=== PATIENT | female | born 1940 | race Caucasian/White ===

== ENCOUNTER 2017-08-11 14:03 | Outpatient (CLI) | payer MEDICARE | END 2017-08-11 14:04 | disposition critical access hospital (66) | LOC: EMS 14:03 | PROVIDERS: ATTEND Surgery | DX: K62.5 Hemorrhage of anus and rectum (principal) | CPT/HCPCS: A0425; A0427 ==

== ENCOUNTER 2017-08-11 14:35 | Emergency (ER) | payer MEDICARE ==
[2017-08-11 15:03] LABS: BASOPHILS % (AUTO) 0.4 %; EOSINOPHILS % (AUTO) 0.3 %; HCT - HEMATOCRIT 29.9 % (37.0-47.0); HGB - HEMOGLOBIN 10.2 g/dL (12.0-16.0); LYMPHOCYTES # (AUTO) 2.3 10^3/uL (1.5-3.5); MEAN CORPUSCULAR HEMOGLOBIN 30.8 pg (27.0-31.0); MEAN CORPUSCULAR VOLUME 90.7 fL (81.0-99.0); MEAN PLATELET VOLUME 7.9 fL (7.9-10.8); MONOCYTES # (AUTO) 0.5 10^3/uL (0.0-1.0); MONOCYTES % (AUTO) 4.3 %; NEUTROPHILS # (AUTO) 8.1 10^3/uL (1.5-6.6); RED CELL DISTRIBUTION WIDTH 13.4 % (12.0-15.0); UNCORRECTED WHITE BLOOD COUNT 10.9 x10^3/uL; WHITE BLOOD COUNT 10.9 x10^3/uL (4.8-10.8)
[2017-08-11 15:10] LABS: INR 1.1 (0.8-1.2); PT - PROTHROMBIN TIME 12.4 secs (9.9-12.6)
[2017-08-11 15:19] LABS: ALBUMIN/GLOBULIN RATIO 1.3 (1.0-2.2); BILIRUBIN,TOTAL 0.4 mg/dL (0.2-1.0); CALCIUM 8.7 mg/dL (8.5-10.3); CREATININE 0.9 mg/dL (0.4-1.0); PARTIAL THROMBOPLASTIN TIME 29.8 secs (24.9-33.3); POTASSIUM 3.6 mmol/L (3.5-5.0); TOTAL PROTEIN 6.1 g/dL (6.7-8.2)
--- NOTE | 2017-08-11 16:28 | ED Physician Documentation ---
PD HPI GI BLEED - Stated complaint Stated Complaint: GI BLEED/ SOA - Chief complaint Chief Complaint: Abd Pain - History obtained from History obtained from: Patient - History of Present Illness Timing - onset: Today Timing - duration: Days (1) Timing - details: Abrupt onset Pain level max: 0 Pain level now: 0 Associated symptoms: BRBPR (x1), Black/tarry stool (x1) Contributing factors: No: Sick contact, Bad food, Travel, Recent antibiotics, Alcohol use, Aspirin use, NSAID use, Stress, Anticoagulated, Diabetes Improved by: Other (nothing) Worsened by: Other (nothing) Similar symptoms before: Has not had sx before Recently seen: Not recently seen - Additional information Additional information: states normal colonoscopy 3 years ago. Not on any home medications. Review of Systems Ten Systems: 10 systems reviewed and negative Constitutional: denies: Fever, Chills Cardiac: denies: Chest pain / pressure Respiratory: denies: Cough GI: denies: Abdominal Pain, Nausea, Vomiting, Diarrhea Skin: denies: Rash Musculoskeletal: denies: Neck pain, Back pain Neurologic: denies: Syncope PD PAST MEDICAL HISTORY - Past Medical History Past Medical History: Yes Cardiovascular: Hypertension Other Past Medical History: pt. has not been taking her meds for a while because she ran out - Past Surgical History Past Surgical History: Yes Ortho: Hip replacement - Present Medications Home Medications: Ambulatory Orders Medication Instructions Recorded Confirmed No Known Home Medications [No 08/11/17 08/11/17 Known Home Medications] - Allergies Allergies/Adverse Reactions: Allergies Allergy/AdvReac Type Severity Reaction Status Date / Time No Known Drug Allergies Allergy Verified 04/21/13 17:57 - Social History Does the pt smoke?: Yes Smoking Status: Current every day smoker - Immunizations Immunizations are current?: No PD ED PE NORMAL - Vitals Vital signs reviewed: Yes - General General: Alert and oriented X 3, No acute distress, Well developed/nourished - HEENT HEENT: PERRL, Moist mucous membranes - Neck Neck: Supple, no meningeal sign - Cardiac Cardiac: RRR, No murmur, Strong equal pulses - Respiratory Respiratory: No respiratory distress, Other (Mild wheezing bilaterally) - Abdomen Abdomen: Soft, Non tender, Non distended - Rectal Rectal: Other (hemoccult +. Dark stool. Essie LÓPEZ present) - Derm Derm: Warm and dry - Extremities Extremities: No edema, No calf tenderness / cord - Neuro Neuro: Alert and oriented X 3 - Psych Psych: Normal mood, Normal affect Results - Vitals Vitals: Vital Signs - 24 hr 08/11/17 08/11/17 14:35 16:38 Temperature 37.0 C 36.8 C Heart Rate 112 H 120 H Respiratory 18 20 Rate Blood Pressure 116/76 122/74 O2 Saturation 100 97 Oxygen O2 Source Room air - Labs Labs: Laboratory Tests 08/11/17 08/11/17 08/11/17 14:55 14:55 14:55 WBC 10.9 H RBC 3.30 L Hgb 10.2 L Hct 29.9 L MCV 90.7 MCH 30.8 MCHC 34.0 RDW 13.4 Plt Count 259 MPV 7.9 Neut # 8.1 H Lymph # 2.3 [place] # 0.5 Eos # 0.0 Baso # 0.0 Absolute Nucleated RBC 0.00 Nucleated RBC % 0.0 PT 12.4 INR 1.1 APTT 29.8 Sodium Potassium Chloride Carbon Dioxide Anion Gap BUN Creatinine Estimated GFR (MDRD) Glucose Calcium Total Bilirubin AST ALT Alkaline Phosphatase Total Protein Albumin Globulin Albumin/Globulin Ratio Lipase Blood Type O NEGATIVE Antibody Screen NEGATIVE 08/11/17 14:55 WBC RBC Hgb Hct MCV MCH MCHC RDW Plt Count MPV Neut # Lymph # [place] # Eos # Baso # Absolute Nucleated RBC Nucleated RBC % PT INR APTT Sodium 139 Potassium 3.6 Chloride 108 Carbon Dioxide 22 Anion Gap 9.0 BUN 49 H Creatinine 0.9 Estimated GFR (MDRD) 61 L Glucose 120 H Calcium 8.7 Total Bilirubin 0.4 AST 16 ALT 12 Alkaline Phosphatase 59 Total Protein 6.1 L Albumin 3.5 Globulin 2.6 Albumin/Globulin Ratio 1.3 Lipase 26 Blood Type Antibody Screen PD MEDICAL DECISION MAKING - ED course Complexity details: reviewed results, re-evaluated patient, considered differential, d/w patient, d/w trial consultant ED course: Patient is a 77-year-old female who presents to the emergency department with a lower GI bleed. No bleeding in the emergency department. No need to have a bowel movement. No abdominal pain. Abdomen is soft, nontender nondistended. She states that her heart rate is always fast and this is a chronic condition for her. Denies being any more short of breath than her normal baseline to me. She adamantly does not want to stay in the hospital. I discussed the case with Dr. Batres, general surgery and he will see her in the office as long as she does not become symptomatic or have recurrent bleeding. Patient is comfortable with this plan and she will call his office in the morning for an appointment. She will return if she worsens in any way. Patient counseled regarding signs and symptoms for which I believe and urgent re-evaluation would be necessary. Patient with good understanding of and agreement to plan and is comfortable going home at this time This document was made in part using voice recognition software. While efforts are made to proofread this document, sound alike and grammatical errors may occur. Departure - Departure Disposition: 01 Home, Self Care Clinical Impression: GI bleed Qualifiers: GI bleed type/associated pathology: unspecified gastrointestinal hemorrhage type Qualified Code(s): K92.2 - Gastrointestinal hemorrhage, unspecified Condition: Good Instructions: ED Hematochezia Stable Follow-Up: Carlo Batres MD [Provider Admit Priv/Credential] - Tomorrow (call the office first thing in the morning about follow up with Dr. Batres) Comments: call the office first thing in the morning about follow up with Dr. Batres. Return if you worsen including worsening bleeding, lightheadedness, dizziness or any other new or worsening symptoms. You can also return if you change your mind about being admitted to the hospital. Discharge Date/Time: 08/11/17 16:47
[2017-08-11 16:47] VITALS: BP 122/74
== END 2017-08-11 16:47 | disposition home or self-care (01) ==
LOC: EDUNIT# → ED 14:35
DX: K92.2 Gastrointestinal hemorrhage, unspecified (principal); I10 Essential (primary) hypertension; F17.200 Nicotine dependence, unspecified, uncomplicated
CPT/HCPCS: 36415; 80053; 83690; 85025; 85610; 85730; 86850; 86900; 86901; 99283; 99284

== ENCOUNTER 2017-08-20 07:01 | Day surgery (SDC) | payer MEDICARE ==
[~2017-08-20 07:01] MED LIST: LACTATED RINGERS 1,000 ML IV ONE
[2017-08-20] MEDS ORDERED: MIDAZOLAM 2 MG/2 ML VIAL IVP ONE (08:21)
[2017-08-20] MEDS ORDERED: fentaNYL 100 MCG/2 ML VIAL IVP ONE (08:21)
[2017-08-20 08:23] LABS: IRON 19 ug/dL (28-170); TOTAL IRON BINDING CAPACITY 360 ug/dL (250-450); TRANSFERRIN 257 mg/dL (192-382)
[2017-08-20 09:39] VITALS: BP 108/64
== END 2017-08-20 07:02 | disposition home or self-care (01) ==
LOC: SDS 07:01
PROVIDERS: ATTEND Surgery
PROC: 0DB38ZX Excision of Lower Esophagus, Via Natural or Artificial Opening Endoscopic, Diagnostic (ICD-10-PCS; 2017-08-20)
PROC: 0DBK8ZX Excision of Ascending Colon, Via Natural or Artificial Opening Endoscopic, Diagnostic (ICD-10-PCS; principal; 2017-08-20 08:15)
PROC: 0DB98ZX Excision of Duodenum, Via Natural or Artificial Opening Endoscopic, Diagnostic (ICD-10-PCS; 2017-08-20 08:15)
DX: K26.9 Duodenal ulcer, unspecified as acute or chronic, without hemorrhage or perforation (principal); K44.9 Diaphragmatic hernia without obstruction or gangrene; K22.70 Barrett's esophagus without dysplasia; D12.2 Benign neoplasm of ascending colon; K57.30 Diverticulosis of large intestine without perforation or abscess without bleeding; I10 Essential (primary) hypertension; E78.5 Hyperlipidemia, unspecified
CPT/HCPCS: 36415; 43239; 45384; 82728; 83540; 84466; 93005; J7120

== ENCOUNTER 2018-07-30 11:44 | Outpatient (CLI) | payer MEDICARE ==
[2018-07-30 19:57] LABS: BASOPHILS % (AUTO) 0.5 %; EOSINOPHILS # (AUTO) 0.2 10^3/uL (0.0-0.7); EOSINOPHILS % (AUTO) 2.5 %; HGB - HEMOGLOBIN 13.7 g/dL (12.0-16.0); LYMPHOCYTES # (AUTO) 1.9 10^3/uL (1.5-3.5); MEAN CORPUSCULAR HEMOGLOBIN 31.2 pg (27.0-31.0); MEAN CORPUSCULAR HGB CONC 33.7 g/dL (32.0-36.0); MEAN CORPUSCULAR VOLUME 92.5 fL (81.0-99.0); MEAN PLATELET VOLUME 8.4 fL (7.9-10.8); MONOCYTES # (AUTO) 0.5 10^3/uL (0.0-1.0); MONOCYTES % (AUTO) 7.3 %; NEUTROPHILS # (AUTO) 3.6 10^3/uL (1.5-6.6); NEUTROPHILS % (AUTO) 58.7 %; PLT - PLATELET COUNT 232 10^3/uL (130-450); RED BLOOD COUNT 4.39 10^6/uL (4.20-5.40); RED CELL DISTRIBUTION WIDTH 13.9 % (12.0-15.0); WHITE BLOOD COUNT 6.2 x10^3/uL (4.8-10.8)
[2018-07-30 20:14] LABS: ALBUMIN 3.9 g/dL (3.2-5.5); ALBUMIN/GLOBULIN RATIO 1.2 (1.0-2.2); ALKALINE PHOSPHATASE 82 IU/L (42-121); ALT ALANINE AMINOTRANSFERASE 41 IU/L (10-60); AST ASPARTATE AMINOTRANSFERASE 34 IU/L (10-42); BILIRUBIN,TOTAL 0.6 mg/dL (0.2-1.0); BUN - BLOOD UREA NITROGEN 20 mg/dL (6-20); CALCIUM 8.7 mg/dL (8.5-10.3); CARBON DIOXIDE - CO2 22 mmol/L (21-32); CHLORIDE 109 mmol/L (101-111); CHOL/HDL RATIO 2.8 (<4.4); CHOLESTEROL 189 mg/dL; CREATININE 0.7 mg/dL (0.4-1.0); GFR - MDRD 81 (>89); GLUCOSE 107 mg/dL (70-100); HDL CHOLESTEROL 68 mg/dL; LDL CHOLESTEROL,CALCULATED 110 mg/dL; LDL/HDL RATIO 1.6 (<4.4); SODIUM 136 mmol/L (135-145); TOTAL PROTEIN 7.2 g/dL (6.7-8.2); VLDL CHOLESTEROL 11 mg/dL
== END 2018-07-30 23:59 | disposition home or self-care (01) ==
LOC: LAB.N 11:44
PROVIDERS: ATTEND Nurse Practitioner Family
DX: I10 Essential (primary) hypertension (principal); E78.5 Hyperlipidemia, unspecified; D64.9 Anemia, unspecified
CPT/HCPCS: 36415; 80053; 80061; 83721; 84443; 85025

== ENCOUNTER 2021-01-19 10:25 | Observation (INO) | payer MEDICARE ==
[2021-01-19] MEDS ORDERED: MORPHINE 2 MG/ML CARPUJECT IVP STA (10:45)
[2021-01-19] MEDS ORDERED: ONDANSETRON 4 MG/2 ML VIAL IVP STA (10:45)
[2021-01-19] MEDS ORDERED: SODIUM CHLORIDE 0.9% 1,000 ML IV STA (10:45)
[2021-01-19 11:04] LABS: BASOPHILS # (AUTO) 0.1 10^3/uL (0.0-0.1); BASOPHILS % (AUTO) 0.4 %; EOSINOPHILS # (AUTO) 0.1 10^3/uL (0.0-0.7); EOSINOPHILS % (AUTO) 0.7 %; HCT - HEMATOCRIT 33.2 % (37.0-47.0); LYMPHOCYTES # (AUTO) 2.5 10^3/uL (1.5-3.5); LYMPHOCYTES % (AUTO) 18.5 %; MEAN CORPUSCULAR HEMOGLOBIN 30.5 pg (27.0-31.0); MEAN CORPUSCULAR HGB CONC 33.1 g/dL (32.0-36.0); MEAN PLATELET VOLUME 9.8 fL (7.9-10.8); MONOCYTES # (AUTO) 0.8 10^3/uL (0.0-1.0); MONOCYTES % (AUTO) 6.2 %; NEUTROPHILS # (AUTO) 9.9 10^3/uL (1.5-6.6); NEUTROPHILS % (AUTO) 73.9 %; PLT - PLATELET COUNT 361 10^3/uL (130-450); RED BLOOD COUNT 3.61 10^6/uL (4.20-5.40); RED CELL DISTRIBUTION WIDTH 13.2 % (12.0-15.0); WHITE BLOOD COUNT 13.4 x10^3/uL (4.8-10.8)
[2021-01-19 11:17] LABS: ALBUMIN 4.1 g/dL (3.2-5.5); ALBUMIN/GLOBULIN RATIO 1.1 (1.0-2.2); BILIRUBIN,TOTAL 0.6 mg/dL (0.2-1.0); CALCIUM 9.1 mg/dL (8.5-10.3); CREATININE 0.9 mg/dL (0.4-1.0); TOTAL PROTEIN 7.7 g/dL (6.7-8.2)
--- NOTE | 2021-01-19 13:06 | ED Physician Documentation ---
History of Present Illness - Stated complaint Stated Complaint: FEMALE - Chief complaint Chief Complaint: Abd Pain - History obtained from History obtained from: Patient - Additonal information Additional information: 80-year-old woman with history of GI bleed presents with bloody bowel movement yesterday and this morning. She also is tachycardic on arrival to the emergency department further history is limited by patient confusionAlso with nausea and epigastric abdominal pain. Patient states that she had a GI bleed in the past also has history of hiatal hernia and high blood pressure. Review of Systems Ten Systems: 10 systems reviewed and negative Constitutional: denies: Fever, Chills GI: reports: Abdominal Pain, Nausea, Bloody / black stool. denies: Vomiting : denies: Dysuria Musculoskeletal: denies: Back pain PD PAST MEDICAL HISTORY - Past Medical History Past Medical History: Yes Cardiovascular: Hypertension Endocrine/Autoimmune: None Psych: Depression, Anxiety, Panic attacks Musculoskeletal: Osteoarthritis, Chronic back pain Derm: None - Past Surgical History Past Surgical History: Yes Ortho: Hip replacement - Present Medications Home Medications: Ambulatory Orders Medication Instructions Recorded Confirmed Amitriptyline HCl 75 mg PO DAILY 01/19/21 01/19/21 lisinopriL [Lisinopril] 20 mg PO DAILY 01/19/21 01/19/21 - Allergies Allergies/Adverse Reactions: Allergies Allergy/AdvReac Type Severity Reaction Status Date / Time No Known Drug Allergies Allergy Verified 01/19/21 10:34 - Social History Does the pt smoke?: Yes Smoking Status: Current every day smoker Does the pt drink ETOH?: Yes Does the pt have substance abuse?: No - Immunizations Immunizations are current?: No PD ED PE NORMAL - Vitals Vital signs reviewed: Yes - General General: Alert and oriented X 3, No acute distress, Well developed/nourished - HEENT HEENT: Atraumatic, PERRL, EOMI - Neck Neck: Supple, no meningeal sign - Cardiac Cardiac: Other (Tachycardic rate and regular rhythm) - Respiratory Respiratory: No respiratory distress, Clear bilaterally - Abdomen Abdomen: Non tender, Non distended, Other (discomfort in epigastrium) - Derm Derm: Other (pale and cool) - Extremities Extremities: No deformity - Neuro Neuro: Alert and oriented X 3 - Psych Psych: Normal mood, Normal affect Results - Vitals Vitals: Vital Signs - 24 hr 01/19/21 01/19/21 10:31 12:46 Temperature 36.4 C L Heart Rate 120 H 100 Respiratory 16 18 Rate Blood Pressure 133/61 H 107/89 H O2 Saturation 95 96 Oxygen O2 Source Room air - Labs Labs: Laboratory Tests 01/19/21 01/19/21 10:54 10:54 WBC 13.4 H RBC 3.61 L Hgb 11.0 L Hct 33.2 L MCV 92.0 MCH 30.5 MCHC 33.1 RDW 13.2 Plt Count 361 MPV 9.8 Neut # (Auto) 9.9 H Lymph # (Auto) 2.5 [place] # (Auto) 0.8 Eos # (Auto) 0.1 Baso # (Auto) 0.1 Absolute Nucleated RBC 0.00 Nucleated RBC % 0.0 Sodium 136 Potassium 4.0 Chloride 101 Carbon Dioxide 24 Anion Gap 11.0 BUN 35 H Creatinine 0.9 Estimated GFR (MDRD) 60 L Glucose 133 H Calcium 9.1 Total Bilirubin 0.6 AST 15 ALT 14 Alkaline Phosphatase 81 Total Protein 7.7 Albumin 4.1 Globulin 3.6 Albumin/Globulin Ratio 1.1 Lipase 26 PD MEDICAL DECISION MAKING - ED course ED course: 80-year-old woman with past medical history of upper GI bleed presents with black diarrhea yesterday and this morning. She does have a drop in her hemoglobin from 13.7-11 with tachycardia that resolved after fluids. I discussed with Dr. Parker who is able to take her for endoscopy today. We will admit to medicine. Departure - Departure Disposition: ED Place in Observation Clinical Impression: Dark stools, Epigastric pain, Nausea Condition: Stable
[2021-01-19] MEDS ORDERED: ACETAMINOPHEN 325 MG TABLET PO PRN (13:11)
[2021-01-19] MEDS ORDERED: ONDANSETRON 4 MG/2 ML VIAL IVP PRN (13:11)
[2021-01-19] MEDS ORDERED: MORPHINE 2 MG/ML CARPUJECT IVP PRN (13:11)
[2021-01-19] MEDS ORDERED: SODIUM CHLORIDE FLUSH 0.9% 10 ML SYRINGE IVP PRN (13:11)
--- NOTE | 2021-01-19 13:30 | HISTORY & PHYSICAL EXAMINATION ---
Chief Complaint - Chief Complaint Chief Complaint: black stool History of Present Illness - Admitted From Admitted From:: ER - History Obtained From Records Reviewed: [facility] History obtained from: pt Exam Limitations: no - History of Present Illness HPI Comment/Other: Patient is a 80-year-old female with a past medical history significant for HTN, previous GI black stool, cigarette smoker for 67 yrs without intention to stop smoking, Depression, Anxiety, Panic attacks, chronic back pain, hiatal hernia who presents to the emergency department with GI bleed. pt report she had once black diarrhea on last night. she report she had similar black stool about 4 yrs ago then she had EGD in which she was found to have hiatal hernia. she report slight abdominal discomfort but denies nausea or vomiting. She states that her heart rate is always fast and this is a chronic condition for her. She Denies chest pain, fever, chill, shortness of breath. laboratory test show patient had hemoglobin 11, BUN 35. In the ER, patient is afebrile, tachycardia HR 120, otherwise she is Hemodynamically stable. GI surgeon was called, patient may have EGD on this afternoon. Discussed the care goal with patient, patient requests full code History - Past Medical History Cardiovascular: reports: Hypertension Endocrine/Autoimmune: reports: None Psych: reports: Depression, Anxiety, Panic attacks Musculoskeletal: reports: Osteoarthritis, Chronic back pain Derm: reports: None MRSA Hx?: No - Past Surgical History Ortho: reports: Hip replacement - Family & Social History Family History Comment/Other: Patient reported she was adopted so she she has no idea for his parents medical history Social History Notes: she report she smoked cigarette for 67 yrs and no intention to stop. SHe denies alcohol, drug issue Meds/Allgy - Home Medications Home Medications: Ambulatory Orders Medication Instructions Recorded Confirmed Amitriptyline HCl 75 mg PO QPM 01/19/21 01/19/21 lisinopriL [Lisinopril] 20 mg PO DAILY 01/19/21 01/19/21 - Allergies Allergies/Adverse Reactions: Allergies Allergy/AdvReac Type Severity Reaction Status Date / Time No Known Drug Allergies Allergy Verified 01/19/21 10:34 Review of Systems - Constitutional Constitutional: denies: Fatigue, Fever, Chills, Malaise, Weakness, Poor appetite, Diaphoresis, Night sweats - Eyes Eyes: denies: Pain, Blurred vision, Field loss, Vision loss - Ears, Nose & Throat Ears, Nose & Throat: denies: Ear pain, Tinnitus, Nosebleeds, Bleeding gums - Cardiovascular Cariovascular: denies: Irregular heart rate, Palpitations, Chest pain, Edema, Lightheadedness, Syncope, Exertional dyspnea, Decr. exercise tolerance - Respiratory Respiratory: denies: Cough, Sputum production, Snoring, Hemoptysis, Orthopnea, SOB at rest, SOB with exertion - Gastrointestinal Gastrointestinal: reports: Diarrhea, Black stools. denies: Abdominal pain, Constipation, Rectal bleeding, Nausea, Vomiting - Genitourinary Genitourinary: denies: Dysuria, Urgency, Incontinence - Musculoskeletal Musculoskeletal: denies: Muscle pain, Muscle aches, Limited range of motion - Integumentary Integumentary: denies: Rash, Lesions, Lumps - Neurological Neurological: denies: General weakness, Focal weakness, Headache, Dizziness, Numbness, Pre-existing deficit, Abnormal gait, Seizures, Incoordination, Slurred speech - Psychiatric Psychiatric: denies: Depression, Delusions - Endocrine Endocrine: denies: Polyuria, Polyphagia - Hematologic/Lymphatic Hematologic/Lymphatic: denies: Anemia, Petechiae, Blood clots Prior Level of Functionality: Patient is independent at home Exam - Vital Signs Vital Signs: Vital Signs x48h Temp Pulse Resp BP Pulse Ox 01/19/21 12:46 100 18 107/89 H 96 01/19/21 10:31 36.4 C L 120 H 16 133/61 H 95 - Physical Exam General Appearance: positive: No acute distress, Alert. negative: Lethargic Eyes Bilateral: positive: Normal inspection, PERRL, No lid inflammation ENT: positive: ENT inspection nml, No signs of dehydration. negative: Purulent nasal drainage Neck: positive: Nml inspection, Trachea midline. negative: Thyromegaly, Tracheal deviation Respiratory: positive: Chest non-tender, No respiratory distress. negative: Wheezes, Rales Cardiovascular: positive: Regular rate & rhythm, No murmur. negative: Tachycardia, Bradycardia, Systolic murmur, Diastolic murmur Peripheral Pulses: positive: 2+ Abdomen: positive: Non-tender, No organomegaly, No distention, Abnml bowel sounds (slight hypobowel sound). negative: Tenderness, Guarding Back: positive: Nml inspection Skin: positive: Color nml, No rash, Warm, Dry. negative: Cyanosis, Diaphoresis Extremities: positive: Non-tender, Full ROM, Nml appearance. negative: Calf tenderness Neurologic/Psychiatric: positive: Oriented x3, Motor nml, Sensation nml, Mood/affect nml. negative: Weakness, Sensory loss, Facial droop, Slurred/abnml speech, Depressed mood/affect Sepsis Event Note (H) - Evaluation Current Stage of Sepsis: Ruled out Conclusion/Plan - Problem List (1) GI bleed Conclusion/Plan: pt report she had once black stool. she had hx of GI bleed. HGB is 11 on today. she had 13.7 three years ago. she had elevated BUN. she had long hx of cigarette smoking. GI surgeon plan to have EGD on today afternoon. we will followup with. PPI IV twice, H&H monitor. Qualifiers: GI bleed type/associated pathology: unspecified gastrointestinal hemorrhage type Qualified Code(s): K92.2 - Gastrointestinal hemorrhage, unspecified (2) HTN (hypertension) Conclusion/Plan: stable. we will resume home Lisinopril. (3) Current smoker Conclusion/Plan: advise pt quit smoking, but pt state she has no intention to quit. she also decline Nicotine patch. - Lab Results Fish Bones: 01/19/21 10:54 01/19/21 10:54 Core Measures - Anticipated LOS I expect patient to be DC'd or transferred within 96 hours.: Yes - DVT/VTE - Prophylaxis VTE/DVT Device ordered at admit?: Yes VTE/DVT Prophylaxis med ordered at admit?: Yes
--- NOTE | 2021-01-19 13:56 | XRAY Report ---
PROCEDURE: Chest 1 View X-Ray INDICATIONS: sob TECHNIQUE: One view of the chest was acquired. COMPARISON: 04/21/2013 FINDINGS: Surgical changes and devices: None. Lungs and pleura: No pleural effusions or pneumothorax. No lung consolidation. Interstitial prominen ce noted in the lungs bilaterally. Lungs are hyperinflated suggesting COPD. Mediastinum: Mediastinal contours appear normal. Heart size is normal. Large retrocardiac hiatal h ernia is redemonstrated. Bones and chest wall: No suspicious bony lesions. Overlying soft tissues appear unremarkable. IMPRESSION: 1. Bilateral prominent interstitial thickening which could represent chronic interstitial lung diseas e, pulmonary edema or atypical pneumonia. 2. No lung consolidation or pleural effusions. Reviewed by: Cindy Bradford MD, PhD on 01/19/2021 1:55 PM PDT Approved by: Cindy Bradford MD, PhD on 01/19/2021 1:55 PM PDT Station ID: [id number]
[2021-01-19] MEDS ORDERED: SODIUM CHLORIDE 0.9% 1,000 ML IV SCH (14:00)
--- NOTE | 2021-01-19 14:04 | ANESTHESIA ---
Pre-Anesthesia VS, & Labs - Diagnosis GI bleed - Procedure EGD Vital Signs: Temp Pulse Resp BP Pulse Ox 36.4 C L 105 H 16 155/76 H 99 01/19/21 10:31 01/19/21 13:43 01/19/21 13:43 01/19/21 13:43 01/19/21 13:43 Height: 5 ft 3 in Weight (kg): 63.503 kg Body Mass Index: 24.7 BMI Classification: Healthy weight - NPO >8 hours Last Fluid Intake: water > 2hrs - Is Patient ?: No - Lab Results Current Lab Results: Laboratory Tests 01/19/21 10:54: Sodium 136, Potassium 4.0, Chloride 101, Carbon Dioxide 24, Anion Gap 11.0, BUN 35 H, Creatinine 0.9, Estimated GFR (MDRD) 60 L, Glucose 133 H, Calcium 9.1, Total Bilirubin 0.6, AST 15, ALT 14, Alkaline Phosphatase 81, Total Protein 7.7, Albumin 4.1, Globulin 3.6, Albumin/Globulin Ratio 1.1, Lipase 26 01/19/21 10:54: WBC 13.4 H, RBC 3.61 L, Hgb 11.0 L, Hct 33.2 L, MCV 92.0, MCH 30.5, MCHC 33.1, RDW 13.2, Plt Count 361, MPV 9.8, Neut # (Auto) 9.9 H, Lymph # (Auto) 2.5, [place] # (Auto) 0.8, Eos # (Auto) 0.1, Baso # (Auto) 0.1, Absolute Nucleated RBC 0.00, Nucleated RBC % 0.0 Fish Bones: 01/19/21 10:54 01/19/21 10:54 Home Medications and Allergies Home Medications: Ambulatory Orders Amitriptyline HCl 75 mg PO QPM 01/19/21 lisinopriL [Lisinopril] 20 mg PO DAILY 01/19/21 Active Medications Acetaminophen (Acetaminophen 325 Mg Tablet) 650 mg PO Q4HR PRN PRN Reason: Pain 1 to 4 Amitriptyline HCl (Amitriptyline 25 Mg Tablet) 75 mg PO QPM MARIE Sodium Chloride (Normal Saline 0.9%) 1,000 mls @ 100 mls/hr IV .Q10H MARIE Stop: 01/19/21 23:59 Morphine Sulfate (Morphine 2 Mg/Ml Carpuject) 2 mg IVP Q2HR PRN PRN Reason: Pain 8 to 10 Ondansetron HCl (Ondansetron 4 Mg/2 Ml Vial) 4 mg IVP Q6HR PRN PRN Reason: Nausea / Vomiting Pantoprazole Sodium (Pantoprazole 40 Mg Vial) 40 mg IVP BID MARIE Sodium Chloride (Sodium Chloride Flush 0.9% 10 Ml Syringe) 10 ml IVP PRN PRN PRN Reason: NEEDED PER PROVIDER ORDERS Sodium Chloride (Sodium Chloride Flush 0.9% 10 Ml Syringe) 10 ml IVP 0100,0900,1700 MARIE Amitriptyline HCl 75 mg PO QPM 01/19/21 lisinopriL [Lisinopril] 20 mg PO DAILY 01/19/21 Allergies/Adverse Reactions: Allergies Allergy/AdvReac Type Severity Reaction Status Date / Time No Known Drug Allergies Allergy Verified 01/19/21 10:34 Anes History & Medical History - Anesthetic History Anesthesia Complications: reports: No previous complications Family history of Anesthesia Complications: Denies Family history of Malignant Hyperthermia: Denies - Medical History Cardiovascular: reports: Hypertension Pulmonary: reports: None Gastrointestinal: reports: GI bleed Urinary: reports: None Neuro: reports: None Musculoskeletal: reports: Osteoarthritis, Chronic back pain Endocrine/Autoimmune: reports: None Skin: reports: None Smoking Status: Current every day smoker - Surgical History Orthopedic: reports: Hip replacement Exam General: Alert, Oriented x3 Dental: Other (edentulous) Mouth Openin Fingerbreadth Neck Mobility: Normal Mallampati classification: I Respiratory: Lungs clear Cardiovascular: Regular rate Abdomen: Normal bowel sounds Extremities: No clubbing Mental/Cognitive Status: Alert/Oriented X3, Normal for patient Plan Anesthesia Type: Total IV Consent for Procedure(s) Verified and Reviewed: Yes Code Status: Attempt Resuscitation ASA classification: 2-Mild systemic disease Is this case an emergency?: Yes
[2021-01-19] MEDS ORDERED: LIDOCAINE-MPF 2% 5 ML VIAL ONE (14:07)
[2021-01-19] MEDS ORDERED: PROPOFOL 200 MG/20 ML VIAL IVP ONE (14:07)
--- NOTE | 2021-01-19 14:11 | HISTORY & PHYSICAL EXAMINATION ---
Chief Complaint - Chief Complaint Chief Complaint: bleeding per rectum History of Present Illness - Admitted From Admitted From:: ED - History Obtained From Records Reviewed: yes History obtained from: pt Exam Limitations: none - History of Present Illness HPI Comment/Other: She has history of gi bleed 08/2017. She had a colonoscopy showing sigmoid diverticulosis and a 1 cm polyp was removed. EGD showed a hiatal hernia, mild esophagitis and an ulcer at the duodenal bulb. She states she takes aspirin daily. She denies having heart disease. She has had black stool and bloody stool since yesterday. She had upper ab dominal pain yesterday History - Past Medical History Cardiovascular: reports: Hypertension Respiratory: reports: None Neuro: reports: None Endocrine/Autoimmune: reports: None GI: reports: GI bleed : reports: None Psych: reports: Depression, Anxiety, Panic attacks Musculoskeletal: reports: Osteoarthritis, Chronic back pain Derm: reports: None MRSA Hx?: No - Past Surgical History Ortho: reports: Hip replacement Meds/Allgy - Home Medications Home Medications: Ambulatory Orders Medication Instructions Recorded Confirmed Amitriptyline HCl 75 mg PO QPM 01/19/21 01/19/21 lisinopriL [Lisinopril] 20 mg PO DAILY 01/19/21 01/19/21 - Allergies Allergies/Adverse Reactions: Allergies Allergy/AdvReac Type Severity Reaction Status Date / Time No Known Drug Allergies Allergy Verified 01/19/21 10:34 Review of Systems - Other Findings Other Findings: 10 pt ros as above otherwise unremarkable Exam - Vital Signs Reviewed Vital Signs: Yes Vital Signs: Vital Signs x48h Temp Pulse Resp BP Pulse Ox 01/19/21 13:43 105 H 16 155/76 H 99 01/19/21 12:46 100 18 107/89 H 96 01/19/21 10:31 36.4 C L 120 H 16 133/61 H 95 - Physical Exam General Appearance: positive: No acute distress, Alert Eyes Bilateral: positive: Normal inspection, PERRL, EOMI ENT: positive: No signs of dehydration Neck: positive: No JVD Respiratory: positive: Breath sounds nml Cardiovascular: positive: Regular rate & rhythm Abdomen: positive: Non-tender, No distention Neurologic/Psychiatric: positive: Oriented x3 Conclusion/Plan - Problem List (1) GI bleed Conclusion/Plan: Plan EGD. parq held and consent obtained Qualifiers: GI bleed type/associated pathology: unspecified gastrointestinal hemorrhage type Qualified Code(s): K92.2 - Gastrointestinal hemorrhage, unspecified - Lab Results Fish Bones: 01/19/21 10:54 01/19/21 10:54
[2021-01-19] MEDS ORDERED: LACTATED RINGERS 1,000 ML IV ONE ×2 (14:42)
--- NOTE | 2021-01-19 14:43 | OPERATIVE REPORT ---
Operative Report - General Admit Date: 01/19/21 Procedure Date: 01/19/21 Planned Procedure: egd Pre-Op Diagnosis: gi bleed with melena and dark blood Procedure Performed: egd with biopsy Post Op Diagnosis: paraesophageal hernia, diffuse gastritis, duodenal ulcer without bleeding - Procedure Note Primary Surgeon: fito jorge Anesthesia Technique: MAC Pathology: bx ulcer Complications: none
[2021-01-19 14:50] LABS: B. PARAPERTUSSIS- RESP PCR PAN NOT DETECTED; B. PERTUSSIS- RESP PCR PANEL NOT DETECTED; C. PNEUMONIAE- RESP PCR PANEL NOT DETECTED; CORONAVIRUS 229E-RESP PCR NOT DETECTED; CORONAVIRUS HKU1-RESP PCR NOT DETECTED; CORONAVIRUS NL63-RESP PCR NOT DETECTED; CORONAVIRUS OC43-RESP PCR NOT DETECTED; HUMAN METAPNEUMOVIRUS NOT DETECTED; INFLUENZA A- RESP PCR PANEL NOT DETECTED; INFLUENZA B - RESP PCR PANEL NOT DETECTED; M. PNEUMONIAE- RESP PCR PANEL NOT DETECTED; PARAINFLUENZA VIRUS 1 NOT DETECTED; PARAINFLUENZA VIRUS 2 NOT DETECTED; PARAINFLUENZA VIRUS 3 NOT DETECTED; PARAINFLUENZA VIRUS 4 NOT DETECTED; RHINOVIRUS/ENTEROVIRUS NOT DETECTED; RSV- RESP PCR PANEL NOT DETECTED; SARS-CoV-2 -RESP PCR PANEL NOT DETECTED
--- NOTE | 2021-01-19 15:16 | CONSULTATION NOTE ---
Consultation Report: 1432 Pt transferred to PACU. While giving report to RN possible ST elevation noted on the monitor. 12 lead EKG ordered stat. VS stable and at baseline. Pt aroused, denies any CP/N/V, reports SOB but states it is her baseline breathing due to Emphysema. 12 lead EKG revealed PACs, BBB, and borderline ST elevation. STAT Troponin ordered. Pt continues to be asymptomatic with VSS. Dr Parker notified and updated. Pt will be admitted and referred to hospitalist for further management
[2021-01-19] MEDS: SODIUM CHLORIDE FLUSH 0.9% 10 ML SYRINGE IVP SCH (16:22)
[2021-01-19 17:13] LABS: HCT - HEMATOCRIT 28.2 % (37.0-47.0); HGB - HEMOGLOBIN 9.3 g/dL (12.0-16.0)
[2021-01-19] MEDS: PANTOPRAZOLE 40 MG VIAL IVP SCH (17:59)
--- NOTE | 2021-01-19 18:26 | ANESTHESIA POST OP EVALUATION ---
Anesthesia Post Eval - Post Anesthesia Eval Vitals: Last Vital Signs Temp 37.2 C 01/19/21 15:56 Pulse 101 H 01/19/21 15:56 Resp 20 01/19/21 15:56 BP 142/66 H 01/19/21 15:56 Pulse Ox 97 01/19/21 15:56 CV Function Including HR & BP: Additional Therapies Ordered (see note) Pain Control: Satisfactory Nausea & Vomiting: Negative Mental Status: Baseline Respiratory Status: Airway Patent Hydration Status: Satisfactory Anesthesia Complications: None
[2021-01-19] MEDS ORDERED: AMITRIPTYLINE 25 MG TABLET PO SCH (21:00)
[2021-01-19 23:08] LABS: HCT - HEMATOCRIT 26.5 % (37.0-47.0); HGB - HEMOGLOBIN 8.6 g/dL (12.0-16.0)
[2021-01-20] MEDS ORDERED: AMITRIPTYLINE 25 MG TABLET PO SCH
[2021-01-20] MEDS: SODIUM CHLORIDE FLUSH 0.9% 10 ML SYRINGE IVP SCH ×2 (00:16→08:54)
[2021-01-20 04:49] LABS: BASOPHILS % (AUTO) 0.4 %; EOSINOPHILS # (AUTO) 0.2 10^3/uL (0.0-0.7); EOSINOPHILS % (AUTO) 2.1 %; HCT - HEMATOCRIT 26.1 % (37.0-47.0); HGB - HEMOGLOBIN 8.3 g/dL (12.0-16.0); LYMPHOCYTES # (AUTO) 2.6 10^3/uL (1.5-3.5); LYMPHOCYTES % (AUTO) 28.1 %; MEAN CORPUSCULAR HEMOGLOBIN 29.7 pg (27.0-31.0); MEAN CORPUSCULAR HGB CONC 31.8 g/dL (32.0-36.0); MEAN CORPUSCULAR VOLUME 93.5 fL (81.0-99.0); MEAN PLATELET VOLUME 9.7 fL (7.9-10.8); MONOCYTES # (AUTO) 0.7 10^3/uL (0.0-1.0); MONOCYTES % (AUTO) 7.4 %; NEUTROPHILS # (AUTO) 5.7 10^3/uL (1.5-6.6); NEUTROPHILS % (AUTO) 61.6 %; PLT - PLATELET COUNT 260 10^3/uL (130-450); RED BLOOD COUNT 2.79 10^6/uL (4.20-5.40); RED CELL DISTRIBUTION WIDTH 13.6 % (12.0-15.0); WHITE BLOOD COUNT 9.3 x10^3/uL (4.8-10.8)
[2021-01-20 05:00] LABS: CALCIUM 7.9 mg/dL (8.5-10.3); CREATININE 0.7 mg/dL (0.4-1.0); POTASSIUM 3.8 mmol/L (3.5-5.0)
[2021-01-20 06:18] LABS: BILIRUBIN,URINE NEGATIVE (NEGATIVE); GLUCOSE, URINE (UA) NEGATIVE (NEGATIVE); KETONES,URINE (UA) 15 mg/dL (NEGATIVE); LEUKOCYTE ESTERASE, URINE NEGATIVE (NEGATIVE); NITRITE,URINE NEGATIVE (NEGATIVE); OCCULT BLOOD,URINE NEGATIVE (NEGATIVE); PROTEIN,URINE NEGATIVE (NEGATIVE); UROBILINOGEN,URINE 0.2 (NORMAL) E.U./dL (NORMAL)
[2021-01-20 06:19] LABS: CLARITY,URINE CLEAR (CLEAR)
[2021-01-20 06:30] LABS: BACTERIA,URINE None Seen /HPF (None Seen); RBC,URINE None Seen /HPF (0-5); SQUAMOUS EPITHELIAL CELL,UR FEW Squamous (<= Few); WBC,URINE 0-3 /HPF (0-5)
[2021-01-20] MEDS: PANTOPRAZOLE 40 MG VIAL IVP SCH (08:54)
[2021-01-20] MEDS ORDERED: FERROUS GLUCONATE 324 MG TABLET PO SCH (09:00)
[2021-01-20] MEDS ORDERED: lisinopriL 20 MG TABLET PO SCH ×2 (09:00)
--- NOTE | 2021-01-20 10:27 | Discharge Plan ---
Discharge Plan Problem Reviewed?: Yes Disposition: Home, Self Care Condition: Stable Prescriptions: Ferrous Gluconate 324 mg PO DAILY #30 tablet Pantoprazole [Protonix] 40 mg PO BID #60 tablet Diet: Soft Activity Restrictions: Activity as Tolerated Shower Restrictions: No Instruction Topics: Ulcer Bleeding Peptic Tx, Diet Soft Dc, Gastric Duodenal Ulcer Ch Health Concerns: You were in the hospital to evaluate bleeding in your intestines. The surgeon who did your upper endoscopy, found that you have a duodenal ulcer. You are being discharged home on Protonix, to heal the ulcer and on Iron replacement, to build up your blood count. Your Amitriptyline medicine was refilled, at your request. The prescriptions were electronically sent to your [facility] pharmacy in [place]. Please eat a soft, bland diet for 1-2 weeks for ulcer healing, and STOP TAKING DAILY ASPIRIN FOR AT LEAST A MONTH, and avoid products like Motrin and Advil, which could cause ulcer bleeding. You may resume taking your usual Lisinopril and Amitriptyline medications. You should see a Primary Care Provider in 1 to 2 weeks for a hospital follow-up appointment, including blood tests to check for anemia. Plan of Treatment: As above. Care Goals: Improvement in symptoms and stabilization are the goals. Assessment: The patient understands and is agreeable with the plan. Additional Instructions or Follow Up instructions: New or worsening symptoms, call your PCP for advice or come to the ER. No Smoking: If you smoke, Please STOP! Call for help.
[2021-01-20 11:16] LABS: HCT - HEMATOCRIT 28.7 % (37.0-47.0)
[2021-01-20 11:30] VITALS: BP 102/60
--- NOTE | 2021-01-20 12:46 | DISCHARGE SUMMARY ---
Discharge Summary Admit Date: 01/19/21 Discharge Date: 01/20/21 Discharging Provider: Dr Doris Smith Condition at Discharge: Stable Discharge Disposition: 01 Home, Self Care - HPI History of Present Illness: From the admission H&P of Alfredo Yin NP: Patient is a 80-year-old female with a past medical history significant for HTN, previous GI bleed and black stool, cigarette smoker for 67 yrs without intention to stop smoking, Depression, Anxiety, Panic attacks, chronic back pain, hiatal hernia who presents to the emergency department with GI bleed. pt report she had one black diarrhea last night and possibly today. she report she had similar black stool about 4 yrs ago then she had EGD in which she was found to have hiatal hernia. she reports slight abdominal discomfort but denies nausea or vom iting. She states that her heart rate is always fast and this is a "chronic condition for her". She denies chest pain, fever, chills, shortness of breath. Laboratory test show patient had hemoglobin 11, BUN 35. In the ER, patient is afebrile, tachycardic HR 120, otherwise she is hemodynamically stable. GI surgeon was called, patient may have EGD on this afternoon. Discussed the care goal with patient, patient requests to be Full Code - HOSPITAL COURSE Hospital Course: (1) Duodenal ulcer Patient reported she had one or two black diarrheal stools. She also had elevated BUN consistent with a GI bleed at presentation. She takes a daily aspirin and has a long hx of cigarette smoking. The aspirin was stopped. She was put on Protonix 40 mg IV twice daily and a clear liquid diet. GI surgeon, Dr Parker, performed an EGD and found a non-bleeding duodenal ulcer. She was discharged on Protonix 40 mg p.o. twice daily to take for a month, and told to avoid aspirin for at least a month. (2) GI blood loss anemia Her admission Hgb was 11, and her baseline Hgb is 13. The Hgb was monitored every 6 hours and she did not need a transfusion (Hgb did not drop below 7). She was started on oral Iron replacement and discharged on this. The discharge Hgb was 9.0. (3) HTN (hypertension) Stable. We continued her home Lisinopril dose. (4) Anxiety and Depression We continued her Amitriptyline dose. (5) Current smoker Advised patient to quit smoking, but she stated she has no intention to quit. She also declined a Nicotine patch. - ALLERGIES Allergies/Adverse Reactions: Allergies Allergy/AdvReac Type Severity Reaction Status Date / Time No Known Drug Allergies Allergy Verified 01/19/21 10:34 - MEDICATIONS Home Medications: Ambulatory Orders Medication Instructions Recorded Confirmed Amitriptyline HCl 75 mg PO QPM 01/19/21 01/19/21 lisinopriL [Lisinopril] 20 mg PO DAILY 01/19/21 01/19/21 Ferrous Gluconate 324 mg PO DAILY #30 tablet 01/20/21 Pantoprazole [Protonix] 40 mg PO BID #60 tablet 01/20/21 - PHYSICAL EXAM AT DISCHARGE General Appearance: positive: No acute distress, Alert, Other (Deep facial wrinkles (is a smoker)) Eyes Bilateral: positive: Normal inspection, EOMI ENT: positive: ENT inspection nml, No signs of dehydration Neck: positive: Nml inspection, No JVD Respiratory: positive: No respiratory distress, Breath sounds nml Cardiovascular: positive: Regular rate & rhythm Abdomen: positive: Non-tender, No distention Skin: positive: Warm, Dry Extremities: positive: Non-tender, No pedal edema Neurologic/Psychiatric: positive: Oriented x3 (Non-focal) - LABS Result Diagrams: 01/20/21 11:02 01/20/21 04:40 - DIAGNOSTIC IMAGING Diagnostic Imaging Results: Final report reviewed - SEPSIS Current Stage of Sepsis: Ruled out - FOLLOW UP Follow Up: See PCP in 1-2 weeks for a hospital follow-up appointment. - TIME SPENT Time Spent in Discharge (Minutes): 30
[2021-01-20] MEDS ORDERED: PANTOPRAZOLE 40 MG TABLET PO SCH (21:00)
== END 2021-01-20 14:20 | disposition home or self-care (01) ==
LOC: ED 10:25 → MS3 13:11
PROVIDERS: ADMIT Nurse Practitioner Gerontology; ATTEND Internal Medicine
PROC: 0DB98ZX Excision of Duodenum, Via Natural or Artificial Opening Endoscopic, Diagnostic (ICD-10-PCS; principal; 2021-01-19 14:30)
DX: K26.4 Chronic or unspecified duodenal ulcer with hemorrhage (principal); D50.0 Iron deficiency anemia secondary to blood loss (chronic); K25.4 Chronic or unspecified gastric ulcer with hemorrhage; K29.71 Gastritis, unspecified, with bleeding; K44.9 Diaphragmatic hernia without obstruction or gangrene; Z20.822 Contact with and (suspected) exposure to COVID-19; I10 Essential (primary) hypertension; F17.210 Nicotine dependence, cigarettes, uncomplicated; F41.9 Anxiety disorder, unspecified; F32.9 Major depressive disorder, single episode, unspecified; J43.9 Emphysema, unspecified; Z79.82 Long term (current) use of aspirin
CPT/HCPCS: 36415; 43239; 71045; 80048; 80053; 81001; 83690; 84484; 85014; 85018; 85025; 86850; 86900; 86901; 87631; 93005; 99284; 99285; A9270; G0378; J7120; 0202U; 87086; 88305

== ENCOUNTER 2021-02-13 11:12 | Outpatient (CLI) | payer MEDICARE ==
--- NOTE | 2021-02-13 11:45 | XRAY Report ---
PROCEDURE: Shoulder 3 View LT INDICATIONS: L SHOULDER PX TECHNIQUE: 3 views of the shoulder were acquired. COMPARISON: None. FINDINGS: Bones: There is severe joint space narrowing, subchondral sclerosis and cysts with inferior and super ior marginal osteophytes. Flattening the humeral head is noted as well. Joint space narrowing and mar ginal osteophytes noted in the AC joint. Soft tissues: No suspicious soft tissue calcifications. Chronic interstitial changes present in the left lung. IMPRESSION: 1. No fracture or subluxation. 2. 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
== END 2021-02-13 23:59 | disposition home or self-care (01) ==
LOC: DI.N 11:12
PROVIDERS: ATTEND Family Medicine
DX: M19.012 Primary osteoarthritis, left shoulder (principal)

== ENCOUNTER 2022-04-02 17:28 | Outpatient (CLI) | payer MEDICARE ==
[2022-04-02 20:39] LABS: BASOPHILS % (AUTO) 0.5 %; EOSINOPHILS # (AUTO) 0.1 10^3/uL (0.0-0.7); HCT - HEMATOCRIT 35.3 % (37.0-47.0); HGB - HEMOGLOBIN 10.8 g/dL (12.0-16.0); LYMPHOCYTES # (AUTO) 1.9 10^3/uL (1.5-3.5); LYMPHOCYTES % (AUTO) 32.4 %; MEAN CORPUSCULAR HEMOGLOBIN 24.9 pg (27.0-31.0); MEAN CORPUSCULAR HGB CONC 30.6 g/dL (32.0-36.0); MEAN CORPUSCULAR VOLUME 81.3 fL (81.0-99.0); MEAN PLATELET VOLUME 9.3 fL (7.9-10.8); MONOCYTES # (AUTO) 0.5 10^3/uL (0.0-1.0); MONOCYTES % (AUTO) 8.4 %; NEUTROPHILS # (AUTO) 3.4 10^3/uL (1.5-6.6); NEUTROPHILS % (AUTO) 57.5 %; PLT - PLATELET COUNT 451 10^3/uL (130-450); RED BLOOD COUNT 4.34 10^6/uL (4.20-5.40); RED CELL DISTRIBUTION WIDTH 17.8 % (12.0-15.0); WHITE BLOOD COUNT 5.8 x10^3/uL (4.8-10.8)
[2022-04-02 20:58] LABS: ALBUMIN 3.6 g/dL (3.2-5.5); ALBUMIN/GLOBULIN RATIO 0.8 (1.0-2.2); ALKALINE PHOSPHATASE 91 IU/L (42-121); ALT ALANINE AMINOTRANSFERASE 10 IU/L (10-60); AST ASPARTATE AMINOTRANSFERASE 15 IU/L (10-42); BILIRUBIN,TOTAL 0.4 mg/dL (0.2-1.0); BUN - BLOOD UREA NITROGEN 33 mg/dL (6-20); CALCIUM 9.6 mg/dL (8.5-10.3); CARBON DIOXIDE - CO2 26 mmol/L (21-32); CHLORIDE 107 mmol/L (101-111); CHOL/HDL RATIO 3.2 (<4.4); CHOLESTEROL 176 mg/dL; CREATININE 0.6 mg/dL (0.4-1.0); GFR - MDRD 96 (>89); GLUCOSE 97 mg/dL (70-100); HDL CHOLESTEROL 55 mg/dL; LDL CHOLESTEROL,CALCULATED 103 mg/dL; LDL/HDL RATIO 1.9 (<4.4); POTASSIUM 4.2 mmol/L (3.5-5.0); SODIUM 141 mmol/L (135-145); TOTAL PROTEIN 8.1 g/dL (6.7-8.2); TRIGLYCERIDES 92 mg/dL; VLDL CHOLESTEROL 18 mg/dL
[2022-04-02 21:08] LABS: THYROID STIMULATING HORMONE 2.05 uIU/mL (0.34-5.60)
== END 2022-04-02 17:29 | disposition home or self-care (01) ==
LOC: LAB.N 17:28
PROVIDERS: ATTEND Internal Medicine
DX: I10 Essential (primary) hypertension (principal); E78.5 Hyperlipidemia, unspecified; Z13.220 Encounter for screening for lipoid disorders; Z13.29 Encounter for screening for other suspected endocrine disorder
CPT/HCPCS: 36415; 80053; 80061; 83721; 84443; 85025

== ENCOUNTER 2022-05-27 08:00 | Outpatient (CLI) | payer MEDICARE ==
--- NOTE | 2022-05-27 16:40 | XRAY Report ---
PROCEDURE: Knee 3 View BILAT INDICATIONS: BILAT KNEE PAIN TECHNIQUE: 3 views of the both knee(s) were acquired. COMPARISON: Knee radiographs 03/12/2022 FINDINGS: Bones: There is severe bilateral joint space loss. This is most pronounced in the right knee lateral compartment. Tricompartmental ossified steatosis. No fractures or dislocations. No suspicious bony l esions. Soft tissues: Small joint effusion. No suspicious soft tissue calcifications. IMPRESSION: Severe bilateral knee DJD. Most pronounced in the right knee lateral compartment. Reviewed by: Kavon Douglas MD on 05/27/2022 4:39 PM PDT Approved by: Kavon Douglas MD on 05/27/2022 4:39 PM PDT Station ID: [id number]
== END 2022-05-27 23:59 | disposition home or self-care (01) ==
LOC: DI.WOS 08:00
PROVIDERS: ATTEND Physician Assistant
DX: M17.0 Bilateral primary osteoarthritis of knee (principal)

== ENCOUNTER 2022-10-01 16:00 | Outpatient (CLI) | payer MEDICARE ==
[2022-10-01 21:38] LABS: RHEUMATOID FACTOR NEGATIVE (Negative)
== END 2022-10-01 16:01 | disposition home or self-care (01) ==
LOC: LAB.N 16:00
PROVIDERS: ATTEND Internal Medicine
DX: M13.0 Polyarthritis, unspecified (principal)
CPT/HCPCS: 36415; 81599; 85651; 86038; 86140; 86200; 86430

== ENCOUNTER 2022-10-22 23:22 | Outpatient (CLI) | payer MEDICARE | END 2022-10-22 23:59 | disposition left against medical advice (07) | LOC: EMS 23:22 | DX: R53.1 Weakness (principal); R41.0 Disorientation, unspecified ==

== ENCOUNTER 2023-11-18 11:08 | Outpatient (CLI) | payer MEDICARE ==
[2023-11-18 17:47] LABS: BASOPHILS # (AUTO) 0.1 10^3/uL (0.0-0.1); BASOPHILS % (AUTO) 0.6 %; EOSINOPHILS # (AUTO) 0.1 10^3/uL (0.0-0.7); EOSINOPHILS % (AUTO) 0.6 %; HGB - HEMOGLOBIN 8.4 g/dL (12.0-16.0); LYMPHOCYTES # (AUTO) 0.8 10^3/uL (1.5-3.5); LYMPHOCYTES % (AUTO) 9.4 %; MEAN CORPUSCULAR HEMOGLOBIN 22.8 pg (27.0-31.0); MEAN CORPUSCULAR VOLUME 78.6 fL (81.0-99.0); MEAN PLATELET VOLUME 9.7 fL (7.9-10.8); MONOCYTES # (AUTO) 0.4 10^3/uL (0.0-1.0); MONOCYTES % (AUTO) 4.8 %; NEUTROPHILS # (AUTO) 7.1 10^3/uL (1.5-6.6); NEUTROPHILS % (AUTO) 84.5 %; PLT - PLATELET COUNT 413 10^3/uL (130-450); RED BLOOD COUNT 3.69 10^6/uL (4.20-5.40); RED CELL DISTRIBUTION WIDTH 16.1 % (12.0-15.0); WHITE BLOOD COUNT 8.4 x10^3/uL (4.8-10.8)
[2023-11-18 18:16] LABS: THYROID STIMULATING HORMONE 5.35 uIU/mL (0.34-5.60)
[2023-11-18 18:33] LABS: ALBUMIN 3.5 g/dL (3.2-5.5); ALKALINE PHOSPHATASE 111 IU/L (42-121); ALT ALANINE AMINOTRANSFERASE 8 IU/L (10-60); AST ASPARTATE AMINOTRANSFERASE 13 IU/L (10-42); BILIRUBIN,TOTAL 0.2 mg/dL (0.2-1.0); BUN - BLOOD UREA NITROGEN 17 mg/dL (6-20); CARBON DIOXIDE - CO2 20 mmol/L (21-32); CHLORIDE 105 mmol/L (101-111); CHOL/HDL RATIO 2.5 (<4.4); CHOLESTEROL 142 mg/dL; CREATININE 0.9 mg/dL (0.6-1.3); GFR - MDRD 60 (>89); GLUCOSE 91 mg/dL (74-104); HDL CHOLESTEROL 57 mg/dL; LDL CHOLESTEROL,CALCULATED 65 mg/dL; LDL/HDL RATIO 1.1 (<4.4); POTASSIUM 4.1 mmol/L (3.5-4.5); SODIUM 134 mmol/L (135-145); TOTAL PROTEIN 6.9 g/dL (6.4-8.9); TRIGLYCERIDES 99 mg/dL (48-352); VLDL CHOLESTEROL 20 mg/dL
== END 2023-11-18 11:09 | disposition home or self-care (01) ==
LOC: LAB.N 11:08
PROVIDERS: ATTEND Internal Medicine
DX: M05.89 Other rheumatoid arthritis with rheumatoid factor of multiple sites (principal); E78.5 Hyperlipidemia, unspecified; F32.A Depression, unspecified
CPT/HCPCS: 36415; 80053; 80061; 83721; 84443; 85025